=== PATIENT | male | born 1960 | race Caucasian/White ===

== ENCOUNTER 2024-11-06 20:53 | Emergency (ER) | payer OTHER, SELFPAY ==
[2024-11-06 20:58] VITALS: BP 98/63
[2024-11-06 21:10] LABS: Glucose - Point of Care 159 mg/dl (70-99)
[2024-11-06] MEDS: TYLENOL 1000 MG PO (21:17)
[2024-11-06 21:36] LABS: % Basophils 0.3 % (0-2); % Immature Granulocytes 0.5 % (0-0.5); % Lymphocytes 10.4 % (20.5-51.1); % Monocytes 12.9 % (1.7-9.3); % Neutrophils 74.9 % (42.2-75.2); Absolute Eosinophils 0.1 10^3/uL (0-0.7); Absolute Lymphocytes 0.6 10^3/uL (1.2-3.4); Absolute Monocytes 0.8 10^3/uL (0.1-0.6); Absolute Neutrophils 4.5 10^3/uL (1.4-6.5); Hematocrit 34.9 % (39.0-52.0); Hemoglobin 12.5 g/dL (13.0-18.0); Mean Corp Hgb Conc. 35.8 g/dL (33.0-37.0); Mean Corpuscular Hgb 29.1 pg (27.0-31.0); Mean Corpuscular Volume 81.4 fL (80.0-94.0); Mean Platelet Volume 9.3 fL (7.4-10.4); Nucleated Red Blood Cells % 0 % (-); Platelet Count 143 10^3/uL (130-400); Red Blood Cell Count 4.29 10^6/uL (4.70-6.10); Red Cell Dist. Width 13.2 % (11.5-14.5)
[2024-11-06 21:44] LABS: Lactic Acid 1.2 mmol/L (0.7-2.0)
[2024-11-06 21:46] VITALS: BMI 27.5
[2024-11-06 21:50] LABS: COVID-19 Antigen Positive (Negative)
[2024-11-06 21:54] LABS: ALT (SGPT) 135 U/L (0-50); AST (SGOT) 69 U/L (17-59); Albumin 4.7 g/dl (3.5-5.0); Alkaline Phosphatase 158 U/L (38-126); Blood Urea Nitrogen 15 mg/dl (9-20); Calcium 9.1 mg/dl (8.4-10.2); Carbon Dioxide 21 mmol/L (22-30); Chloride 103 mmol/L (98-107); Estimated Creatinine Clearance 94 ml/min; Glucose 165 mg/dl (70-99); Potassium 3.8 mmol/L (3.5-5.1); Sodium 135 mmol/L (135-145); Total Bilirubin 1.4 mg/dl (0.2-1.3); Total Protein 6.7 g/dl (6.3-8.2); eGFR > 60.00
--- NOTE | 2024-11-06 21:57 | ED.GENMED ---
History of Present Illness
General
Chief Complaint: Dizziness
Source: patient
Exam Limitations: none
Time Seen by Provider: 11/06/24 21:39
Nursing documentation reviewed up to this point in time: agreed with
History of Present Illness
History of Present Illness:
Patient to ED wt complaint of fever, fatigue, body aches, vomiting. Symptoms started this afternoon. Brought to ED by spouse for eval.
Past History
Past History
ED Past Medical History: NIDDM and Psychiatric
Social History
Personal:
Living: with family
Review of Systems
Review of Systems
Allergies reviewed?: Yes
All Other Systems: ROS reviewed and negative except as documented in HPI and ROS
Constitutional: Reports fever, fatigue and other (generalized body aches.)
EENT: Reports no symptoms
Respiratory: Reports no symptoms
Cardiac: Reports no symptoms
ABD/GI: Reports nausea and vomiting
: Reports no symptoms
Musculoskeletal: Reports no symptoms
Skin: Reports no symptoms
Neurological: Reports weakness
Psychiatric: Reports no symptoms
Phy Exam
General Physical Exam
General Presentation: mild distress
General age: appears stated age
General Skin: warm and dry
General Habitus: normal
General Mental: alert
General Hydration: appears well hydrated
Cardiovascular Exam
Cardiovascular Exam: regular rate/rhythm and no edema
Pulmonary Exam
Pulmonary Exam: lungs clear, no respiratory distress and chest non tender
Musculoskeletal Exam
Musculoskeletal Exam: full ROM and neuro vasc intact
Skin Exam
Skin Exam: normal color, warm/dry and no rash
Psychiatric Exam
Psychiatric Exam: normal mood/affect
Sepsis
Sepsis Screening
Sepsis Assessment: Sepsis Ruled Out
Sepsis Screen
Sepsis Screen: Sepsis Ruled Out
Date: 11/08/24
Time: 18:48
Course
Orders/Labs/Results
Orders:
Orders
03/31/25 21:03
EKG [Electrocardiogram (*1)] Urgent
Reason for Study: Fatigue / Weakness
EKG- Treatment ONCE
11/06/24 21:12
Acetaminophen [Tylenol] 1,000 mg PO NOW STA
11/06/24 21:17
Lactic Acid Urgent
11/06/24 21:18
COVID-19 Antigen Urgent
Source: Nasal Swab
Complete Blood Count/With Diff Urgent
Comprehensive Metabolic Panel Urgent
Blood Culture Urgent
LIA Source: Blood/Venous
Specimen Description:
Influenza A+B Rapid Molecular Urgent
LIA Source: Nasal Swab
Specimen Description:
11/06/24 21:56
0.9% Sodium Chloride 1000 ml [Nss] 1,000 ml IV BOLUS
Ketorolac [Toradol] 15 mg IV NOW STA
11/06/24 21:59
Ondansetron Injectable [Zofran] 4 mg IV NOW STA
Abnormal Lab Results
11/06/24 11/06/24
21:09 21:18
RBC 4.29 L 10^6/uL
(4.70-6.10)
Hgb 12.5 L g/dL
(13.0-18.0)
Hct 34.9 L %
(39.0-52.0)
Absolute Lymphs (auto) 0.6 L 10^3/uL
(1.2-3.4)
Absolute Monos (auto) 0.8 H 10^3/uL
(0.1-0.6)
Lymphocytes % 10.4 L %
(20.5-51.1)
Monocytes % 12.9 H %
(1.7-9.3)
Carbon Dioxide 21 L mmol/L
(22-30)
Glucose 165 H mg/dl
(70-99)
Total Bilirubin 1.4 H mg/dl
(0.2-1.3)
AST 69 H U/L
(17-59)
ALT 135 H U/L
(0-50)
Alkaline Phosphatase 158 H U/L
(38-126)
SARS-CoV-2 Antigen Positive A
(Negative)
POC Glucose 159 H mg/dl
(70-99)
11/06/24 21:18
11/06/24 21:18
Vital Signs
Initial and Last Documented VS:
Initial Vital Signs
Temp Pulse Resp BP
101.1 F H 82 18 98/63
11/06/24 20:58 11/06/24 20:58 11/06/24 20:58 11/06/24 20:58
Last Documented Vital Signs
Temp Pulse Resp BP Pulse Ox
100.3 F 62 20 131/69 95
11/06/24 22:37 11/06/24 23:50 11/06/24 21:45 11/06/24 23:50 11/06/24 23:50
*Critical Care Note
Total Time (30-74mins, 75-104mins- exclusive of procedures): Not Applicable
Update Note
Update Note:
Patient to ED with complaint of fever and weakness. Labs reviewed. He is COVID pos. Discussed findings with patient. He remains awake and alert, non toxic appearing. LCTA. Will discharge home, follow up with PCP. Given instructions on s/s to
return to ED and he is agreeable to plan.
ED Attending Note
-
Portions of this chart may have been created with voice recognition software.� Occasional wrong word or��sound alike� substitutions may have occurred due to the inherent limitations of voice recognition software.
Discharge Plan
Departure
Patient Disposition: Home (Routine Discharge)
Date of Disposition: 11/06/24
Time of Disposition: 22:44
Patient with high blood pressure during this ER visit?: No
Condition: Good
Covid-19: Not Applicable
Discharge Problem:
COVID-19
Instructions: Fever, Adult ED, COVID-19 - ED discharge instructions
Referrals:
Soniya Blackwell, DO [Family Provider] - Next open appointment
Stand Alone Forms: Return to Work
Interventions
Interventions:
*Risk Screen - Suicide Last Done: 11/06/24 20:58
*General Assessment Last Done: 11/06/24 20:58
*Neglect/Abuse Screening Last Done: 11/06/24 20:58
*ED- Fall Risk Assessment Last Done: 11/07/24 00:12
*ED COVID-19 Vaccine History Last Done: 11/06/24 20:58
*Nursing Disposition Last Done: 11/07/24 00:12
ED- Pulmonary Assessment Last Done: 11/06/24 21:17
ED- Neurological Assessment Last Done: 11/06/24 21:17
ED- Cardiac Assessment Last Done: 11/06/24 21:17
KT-Haqrie-Qmtpcmqieg Assessment Last Done: 11/06/24 21:17
ED Swallowing Screen Last Done: 11/06/24 21:17
Discharge Date and Time
Discharge Date/Time: 11/07/24 00:13
Print Language: GREEK
[2024-11-06 22:00] VITALS: BP 133/64
[2024-11-06] MEDS: NSS 1000 IV (22:12)
[2024-11-06] MEDS: ZOFRAN 4 MG IV (22:12)
[2024-11-06] MEDS: TORADOL 15 MG IV (22:12)
[2024-11-06 23:00] VITALS: BP 114/62
[2024-11-06 23:50] VITALS: BP 131/69
== END 2024-11-07 00:13 | disposition home or self-care (01) ==
LOC: EMR 20:53
PROVIDERS: Emergency Medicine; EMERGENCY PHYSICIAN Emergency Medicine; FAMILY PHYSICIAN Family Medicine
DX: R42 Dizziness and giddiness (principal); R50.9 Fever, unspecified; R53.83 Other fatigue; R11.2 Nausea with vomiting, unspecified; E11.9 Type 2 diabetes mellitus without complications
CPT/HCPCS: 99283; 96374; 96375; 96361; 80053; 82962; 83605; 85025; 87040; 87502; 87811; 93005

== ENCOUNTER → 2025-01-22 06:57 | Outpatient (REF) | payer OTHER, SELFPAY | LOC: RAD 06:57 | PROVIDERS: ATTENDING PHYSICIAN Student in an Organized Health Care Education/Training Program; FAMILY PHYSICIAN Family Medicine | DX: I73.9 Peripheral vascular disease, unspecified (principal) | CPT/HCPCS: 93923 ==

== ENCOUNTER → 2025-02-06 15:52 | Outpatient (REF) | payer OTHER, SELFPAY ==
[2025-02-06 17:03] LABS: Urine Character Clear (Clear)
[2025-02-06 17:16] LABS: Urine Red Blood Cell 0-2 /HPF (0-2)
[2025-02-06 17:17] LABS: Hematocrit 32.7 % (39.0-52.0); Hemoglobin 10.8 g/dL (13.0-18.0); Mean Corp Hgb Conc. 33.0 g/dL (33.0-37.0); Mean Corpuscular Volume 84.5 fL (80.0-94.0); Nucleated Red Blood Cells % 0 % (-); Platelet Count 165 10^3/uL (130-400); Red Cell Dist. Width 14.6 % (11.5-14.5)
[2025-02-06 17:41] LABS: ALT (SGPT) 41 U/L (0-50); AST (SGOT) 28 U/L (17-59); Albumin 4.6 g/dl (3.5-5.0); Alkaline Phosphatase 222 U/L (38-126); Alkaline Phosphatase, Total 222 U/L (38-126); Blood Urea Nitrogen 37 mg/dl (9-20); Calcium 9.3 mg/dl (8.4-10.2); Carbon Dioxide 19 mmol/L (22-30); Chloride 105 mmol/L (98-107); Glucose 182 mg/dl (70-99); Potassium 4.9 mmol/L (3.5-5.1); Sodium 137 mmol/L (135-145); Total Protein 7.1 g/dl (6.3-8.2); eGFR 31.13
[2025-02-06 18:12] LABS: PSA, Total - Screen 1.56 ng/ml (0.0-4.0)
[2025-02-06 22:13] LABS: Alk Phos After Heat 103; Alkaline Phosphatase Percent 46.40
== END ==
LOC: REG 15:52
PROVIDERS: ATTENDING PHYSICIAN Family Medicine; REFERRING PHYSICIAN Physician Assistant
DX: I10 Essential (primary) hypertension (principal); R74.8 Abnormal levels of other serum enzymes; R79.89 Other specified abnormal findings of blood chemistry
CPT/HCPCS: 36415; 80053; 81003; 81015; 84078; 85025; G0103

== ENCOUNTER → 2025-02-14 09:18 | Outpatient (REF) | payer OTHER, SELFPAY | LOC: HWRAD 09:18 | PROVIDERS: ATTENDING PHYSICIAN Family Medicine | DX: R50.9 Fever, unspecified (principal); I10 Essential (primary) hypertension; R74.8 Abnormal levels of other serum enzymes; R79.89 Other specified abnormal findings of blood chemistry | CPT/HCPCS: 76700 ==

== ENCOUNTER → 2025-02-25 07:22 | Outpatient (REF) | payer OTHER, SELFPAY | LOC: MRI 07:22 | PROVIDERS: ATTENDING PHYSICIAN Internal Medicine Gastroenterology; FAMILY PHYSICIAN Family Medicine | DX: R50.9 Fever, unspecified (principal); K80.20 Calculus of gallbladder without cholecystitis without obstruction; R10.13 Epigastric pain; R16.2 Hepatomegaly with splenomegaly, not elsewhere classified | CPT/HCPCS: 74183; A9575 ==

== ENCOUNTER 2025-02-26 23:16 | Inpatient (IN) | payer OTHER, SELFPAY ==
[2025-02-26 18:39] VITALS: BP 131/70
[2025-02-26 19:05] LABS: Hematocrit 34.7 % (39.0-52.0); Hemoglobin 11.2 g/dL (13.0-18.0); Mean Corp Hgb Conc. 32.3 g/dL (33.0-37.0); Mean Corpuscular Volume 86.1 fL (80.0-94.0); Nucleated Red Blood Cells % 0 % (-); Platelet Count 202 10^3/uL (130-400); Red Cell Dist. Width 14.0 % (11.5-14.5)
[2025-02-26 19:30] LABS: ALT (SGPT) 52 U/L (0-50); AST (SGOT) 24 U/L (17-59); Albumin 4.8 g/dl (3.5-5.0); Alkaline Phosphatase 382 U/L (38-126); Blood Urea Nitrogen 59 mg/dl (9-20); Calcium 9.9 mg/dl (8.4-10.2); Carbon Dioxide 24 mmol/L (22-30); Chloride 100 mmol/L (98-107); Glucose 382 mg/dl (70-99); Lipase 442 U/L (23-300); Potassium 5.2 mmol/L (3.5-5.1); Sodium 134 mmol/L (135-145); Total Protein 7.8 g/dl (6.3-8.2); eGFR 36.81
[2025-02-26 21:18] VITALS: BMI 25.9
[2025-02-26 21:28] VITALS: BP 145/89
--- NOTE | 2025-02-26 21:38 | ED.GENMED ---
History of Present Illness
General
Chief Complaint: Abdominal Pain
Source: patient and spouse
Exam Limitations: none
Time Seen by Provider: 02/26/25 21:02
Nursing documentation reviewed up to this point in time: agreed with
History of Present Illness
History of Present Illness:
Patient presents to ED for an evaluation after outpatient MRI abdomen revealed obstructing gallstones. Denies fever or chills. Denies nausea or vomiting. Denies trauma. Denies diarrhea. Denies recent change in medications or diet. Denies
previous history of similar symptoms. In addition, recent blood work had revealed worsening kidney function, for which he was evaluated by nephrology () as an outpatient.
Past History
Past History
ED Past Medical History: NIDDM and Psychiatric
Social History
Personal:
Living: with family
Review of Systems
Review of Systems
Allergies reviewed?: Yes
All Other Systems: ROS reviewed and negative except as documented in HPI and ROS
Constitutional: Reports no symptoms; Denies fever
Cardiac: Reports no symptoms
ABD/GI: Reports no symptoms; Denies nausea, vomiting or diarrhea
Musculoskeletal: Reports no symptoms
Skin: Reports no symptoms
Neurological: Reports no symptoms
Phy Exam
Physical Exam
Physical Exam:
Physical Exam
General: no apparent distress, not acutely ill. afebrile
Head: nc/at. eomi
Neck: supple. no meningeal signs.
Heart: s1/s2 regular rate and rhythm
Lungs: no acute respiratory distress. clear bilaterally
Abdomen: normal bowel sounds. not tender. no distention
Neuro: alert and oriented x 3. no focal neurological deficits
Skin: no rash
Psychiatric: well kept. interactive and cooperative
Extremities: no edema. no calf tenderness.
Course
Orders/Labs/Results
Orders:
Orders
02/26/25 18:45
EKG [Electrocardiogram (*1)] Urgent
Reason for Study: Bradycardia / Tachycardia
EKG- Treatment ONCE
02/26/25 18:58
Complete Blood Count/With Diff Urgent
Comprehensive Metabolic Panel Urgent
Lipase Urgent
02/26/25 21:40
Piperacillin/Tazo 3.375 Gram [Zosyn] 3.375 gram in 50 ml IV NOW
02/26/25 23:07
Admit/Transfer Patient As Directed
Co-Sign Provider:
Level of Care: Inpatient admission
Assign to:: Telemetry
Physician / Group: Murray Quevedo
Diagnosis: obstructing choledocholithiasis
Reason for Telemetry: Arrhythmia
Date to Stop Telemetry: 03/01/25
Time to Stop Telemetry: 11:00
Reason for Hospitalization: obstructing choledocholithiasis
Expected length of stay greater than two midnights?: Yes
ELOS- Estimated Length of Stay in days: 3
I certify the patient meets the requirements for IP care: Yes
02/26/25 23:08
Code Status As Directed
Resuscitation Status: Full Code
PRN Pain Medication Management As Directed
May give lesser potent ordered pain med per pt: Yes
preference::
Protocol:: Medication orders for pain may be administered in a
manner that supports deferring to patient preference
when the pt is:
- Requesting an ordered lesser potent pain medication.
Least to most potent pain medications are defined
as: acetaminophen < NSAID < tramadol < opioids
(morphine, oxycodone, hydromorphone).
- Requesting a lesser dose of the same medication IF
ORDERED.
- Requesting a less intrusive route of administration
if both routes are prescribed by the provider (PO <
IV).
02/26/25 23:37
Acetaminophen [Tylenol] 650 mg PO Q4HPRN PRN
02/26/25 23:37
Consult Notification Routine
Specialty to Notify: Surgical
GASTROINTESTINAL CONSULT Routine
Consulting Provider: Jenny Sagastume
Was physician already notified: Yes
Reason for consult: obstructing choledocholithiasis
SURGICAL CONSULT Routine
Consulting Provider: Selvin Tiwari
Was physician already notified: No
Reason for consult: obstructing choledocholithiasis
Activity As Directed
Activity Level: As Tolerated
Pneumatic Compression Sleeves As Directed
Type: Knee high
Vital Signs As Directed
Frequency: Per unit guidelines
Weight As Directed
Frequency: Weekly
Comment: on admission
DX Deep Vein Thrombosis Video Routine
02/26/25 23:45
Lactated Ringers [Lr] 1,000 ml IV 80 mls/hr
02/27/25 04:00
Piperacillin/Tazo 3.375 Gram [Zosyn] 3.375 gram in 50 ml IV Q6H
02/27/25 Breakfast
NPO
Allow oral meds: Yes
Allow clear liquids: No
Basic Metabolic Panel IN AM
Complete Blood Count/No Diff IN AM
02/27/25 08:00
Escitalopram Oxalate [Lexapro] 10 mg PO DAILY
Lamotrigine [Lamictal] 150 mg PO DAILY
Naltrexone HCl [Revia] 50 mg PO DAILY
Pregabalin [Lyrica] 75 mg PO TID
02/27/25 18:00
Atorvastatin [Lipitor] 10 mg PO QPM
03/01/25 11:00
DC Protocol for Telemetry ONCE
Abnormal Lab Results
02/26/25
18:58
RBC 4.03 L 10^6/uL
(4.70-6.10)
Hgb 11.2 L g/dL
(13.0-18.0)
Hct 34.7 L %
(39.0-52.0)
MCHC 32.3 L g/dL
(33.0-37.0)
Abs Immat Gran (auto) 0.1 H 10^3/uL
(0-0.05)
Immature Gran % 1.4 H %
(0-0.5)
Sodium 134 L mmol/L
(135-145)
Potassium 5.2 H mmol/L
(3.5-5.1)
BUN 59 H mg/dl
(9-20)
Creatinine 2.0 H mg/dL
(0.7-1.3)
Glucose 382 H mg/dl
(70-99)
ALT 52 H U/L
(0-50)
Alkaline Phosphatase 382 H U/L
(38-126)
Lipase 442 H U/L
(23-300)
02/26/25 18:58
02/26/25 18:58
Vital Signs
Initial and Last Documented VS:
Initial Vital Signs
Temp Pulse Resp BP Pulse Ox
97.8 F 48 18 131/70 99
02/26/25 18:39 02/26/25 18:39 02/26/25 18:39 02/26/25 18:39 02/26/25 18:39
Last Documented Vital Signs
Temp Pulse Resp BP Pulse Ox
98.4 F 48 18 135/72 99
02/26/25 21:28 02/26/25 18:39 02/26/25 21:28 02/26/25 22:00 02/26/25 22:23
MDM/Problems Addressed
MDM/Problems Addressed:
MRI abdomen report reviewed and discussed with on-call GI physician, Dr. Sagastume. Recommends admission to hospitalist service on IV antibiotics, with plan for ERCP and cholecystectomy.
*Pulse Oximetry
SaO2: 98
Oxygen Mode of Delivery: Room air
Patient hypoxic: no
*EKG
Interpreted by ED Provider?: Yes
EKG Intrepretation Date: 02/26/25
Heart Rate: 45
Rate: bradycardiac
Rhythm: sinus
[place]: normal axis
*Critical Care Note
Total Time (30-74mins, 75-104mins- exclusive of procedures): Not Applicable
ED Attending Note
-
Portions of this chart may have been created with voice recognition software.� Occasional wrong word or��sound alike� substitutions may have occurred due to the inherent limitations of voice recognition software.
Discharge Plan
Departure
Patient Disposition: Admit
Date of Disposition: 02/26/25
Time of Disposition: 21:40
Admit to: Med/Surg
Presentation/result/management discussed w/ accepting MD/DO: Hospitalist
Discharge Problem:
Choledocholithiasis
Interventions
Interventions:
*Risk Screen - Suicide Last Done: 02/26/25 18:39
*General Assessment Last Done: 02/26/25 18:39
*Neglect/Abuse Screening Last Done: 02/26/25 21:33
*ED COVID-19 Vaccine History Last Done: 02/26/25 18:39
OS-Zplvjy-Vylunmucop Assessment Last Done: 02/26/25 21:33
[2025-02-26] MEDS: ZOSYN 50 IV (21:58)
[2025-02-26 22:00] VITALS: BP 135/72
--- NOTE | 2025-02-26 22:25 | HPS.HSE ---
Family Physician
-
Family Physician: Soniya Blackwell
Chief Complaint
-
abnormal out patient abdominal MRI
History of Present Illness
Patient is 64-year-old male with past medical history significant hypertension, hyperlipidemia, DM II, bipolar and depression who presented to [facility] ED for evaluation after outpatient MRI abdomen revealed obstructing gallstones. Patient reports
having intermittent fevers start approximately 8 weeks ago with no associated symptoms which triggered out patient workup, now with abnormal abdmonial MRI. Patient denies any symptoms, recent illness, fever, chills, cough, shortnss of breath,
nausea, vomiting, constipation, diarrhea or urinary changes.
Medical History
Past Medical History
Past Medical History: Reports Other
Additional Past Medical History:
hypertension
hyperlipidemia
DM II
bipolar
depression
Past Surgical History: Reports Other
Additional Past Surgical History:
Bone marrow biopsy 08/2015
Gastric biopsy 08/2015
Screening colonoscopy: Recommend repeat 5 years (2020) 09/19/2015
Social History
Tobacco: Other (chews tobacco )
Alcohol: Occasional
Drug: None
Personal:
Living: With Family
Employment: Employed
Family History
Family History: Other (Father: CAD; Mother: Colon cancer )
Allergies / Home Medications
Allergies reflects when Allergies were last updated in [facility].
Home Medications with original date entered in [facility]
Allergy/Medication List:
Allergies
Allergy/AdvReac Type Severity Reaction Status Date / Time
No Known Allergies Allergy Verified 02/26/25 18:46
Home Medications
escitalopram oxalate 10 mg tablet 10 mg PO DAILY 02/23/25
lamotrigine 150 mg tablet 150 mg PO DAILY 02/23/25
naltrexone 50 mg tablet 50 mg PO DAILY 02/23/25
pregabalin 75 mg capsule 75 mg PO TID 02/23/25
simvastatin 20 mg tablet 20 mg PO QPM 02/23/25
insulin aspart U-100 100 unit/mL (3 mL) subcutaneous pen (Novolog FlexPen U-100 Insulin aspart) 3 unit SC TID 02/26/25
insulin glargine 100 unit/mL subcutaneous solution (Lantus U-100 Insulin) 8 unit SC DAILY 02/26/25
Review of Systems
-
History Source: Patient
Constitutional: Reports Fever (intermittent for 8 weeks)
EENT: Reports No Symptoms
Respiratory: Reports No Symptoms
Cardiac: Reports No Symptoms
Abdomen/GI: Reports No Symptoms
: Reports No Symptoms
Musculoskeletal: Reports No Symptoms
Skin: Reports No Symptoms
Neurological: Reports No Symptoms
Endocrine: Reports No Symptoms
Hematologic/Lymphatic: Reports No Symptoms
Psych: Reports No Symptoms
Physical Exam
Vital Signs
Vital Signs
Temp Pulse Resp BP Pulse Ox
98.4 F 48 18 131/70 98
02/26/25 21:28 02/26/25 18:39 02/26/25 21:28 02/26/25 18:39 02/26/25 21:40
Physical Exam
General: Well Developed, Well Nourished, No Apparent Distress, Comfortable and Conversant
HEENT: NormoCephalic, Moist mucous membranes, Atraumatic and Nogal Conjunctivae
Respiratory: Clear and Non Labored Respirations
Cardiac: S1/S2, Regular Rhythm and Bradycardia; No Murmur
GI: Soft, Non Tender, Non Distended and Normal Bowel Sounds
Rectal: Deferred by Provider
Musculoskeletal: No Clubbing, No Cyanosis and No Edema
Skin: Warm
Neuro: Awake, AO x 3 and Nonfocal/grossly intact
Psych: Calm and Intact Judgment/Insight
Laboratory Results
-
02/26/25 18:58
02/26/25 18:58
Laboratory Results
Total Bilirubin 1.2 mg/dl (0.2-1.3) 02/26/25 18:58
AST 24 U/L (17-59) 02/26/25 18:58
ALT 52 U/L (0-50) H 02/26/25 18:58
Alkaline Phosphatase 382 U/L (38-126) H 02/26/25 18:58
Lipase 442 U/L (23-300) H 02/26/25 18:58
Data Reviewed
-
MRI: Report Reviewed by me (Abd: 1. OBSTRUCTING CHOLEDOCHOLITHIASIS in the distal common bile duct. 2. Moderate intrahepatic and proximal extrahepatic biliary dilatation. 3. Moderate hepatosplenomegaly. 4. Mild lucinda hepatis and portacaval
lymphadenopathy. 5. Small pancreatic cysts (less than 5 mm in size). 6. Smal)
Medical Tests (Nuc Med, Echo, EKG etc): Report Reviewed by me (EKG: SINUS BRADYCARDIA WITH 1ST DEGREE A-V BLOCK)
Lab Data: Labs Reviewed by me (BUN 59, Creat 2.0, eGFR 36.81, glucose 382, ALT 52, Alk Phos 382, Lipase 442)
Impression/Plan
-
IMPRESSION/PLAN:
#obstructing choledocholithiasis
ALT 52, Alk Phos 382, Lipase 442
Abd MRI: 1. OBSTRUCTING CHOLEDOCHOLITHIASIS in the distal common bile duct.
2. Moderate intrahepatic and proximal extrahepatic biliary dilatation.
3. Moderate hepatosplenomegaly.
4. Mild lucinda hepatis and portacaval lymphadenopathy.
5. Small pancreatic cysts (less than 5 mm in size).
6. Small splenic cysts.
EKG: SINUS BRADYCARDIA WITH 1ST DEGREE A-V BLOCK
- Admit to telemetry
- Consult GI
- Consult Surgery
- LR 80cc/hr
- supportive care
#acute kidney injury?
BUN 59, Creat 2.0, eGFR 36.81
follow with Nephrology out patient ()
- monitor BMP
#hypertension
#hyperlipidemia
- continue simvastatin
#DM II
glucose 382
- AccuCheck AC & HS
- SSI
- hold long acting insulin
#neuropathy
- continue pregabalin
#bipolar
#depression
- continue escitalopram, lamotrigine and naltrexone
Code status: full code
DVT prophylaxis: SCDs
--- NOTE | 2025-02-26 22:32 | W.PN.UPDATE ---
Update Note
Progress Note Update
Patient seen in conjunction with DALLIN. I agree with the findings mentioned physical. I concur with the assessment and plan unless stated otherwise.
Briefly, this is a 63-year-old with history of diabetes, hyperlipidemia, depression who had abdominal pain for which he has been followed by GI. He had an outpatient MRI showing obstructive choledocholithiasis for which patient is sent into the
emergency department to be admitted for upcoming ERCP. he reports history of intermittent fevers for several weeks and a workup initially showing transaminitis with follow-up imaging with an ultrasound concerning for choledocholithiasis and then he
had a MRI showing obstructive choledocholithiasis. Recently discontinued on antidiabetic medications.
Patient found to be bradycardic on ECG in the emergency department. He had an episode of COVID-19 in October. Since then patient has had no water or respiratory symptoms. Denies palpitations lightheadedness or dizziness. Denies any chest pain.
Patient denies any new medications.
Patient found to have DANIELLA in early February for which she has been followed by outpatient nephrology for workup.
In the ED he was febrile, blood pressure was 130/70 with a pulse of 48 and satting 98% on room air.
CBC unremarkable
Electrolytes notable for potassium of 5.2 but otherwise unremarkable. BUN/creatinine were 59 and 2.0 with a glucose of 382. Alk phos was elevated and lipase was elevated as well. Creatinine is stable compared to his evaluation 3 weeks ago.
Assessment and plan
Obstructive choledocholithiasis
- Admit to telemetry
- N.p.o.
- Gentle hydration
- Pain control and antiemetics
- starting Zosyn per GI
- GI consulted for ERCP in a.m.
- surgical consult
DM II
- aspart 5 now
- sliding scale insulin
DANIELLA -persistent renal dysfunction since early February. Has seen outpatient nephrology
- Renal dose of medication
- Avoid nephrotoxins
- Will avoid NSAIDs for now
- IV fluids with normal saline at this time
Bradycardia -sinus rhythm cardia no blocking agents, asymptomatic at this time but reports intermittent episodes of dizziness for 2 months. Denies any prior history of CAD. States that blood pressure medications have been weaned off recently.
- telemetry to observe for severe bradycardia
- 1st deg avb, no ischemia, check tsh, may need further ischemic testing as outpatient
- avoid kiley agents
- consult cardiology in am if persistently berry on telemetry
DVT prophylaxis�heparin subcu
CODE STATUS�full code
[2025-02-26] MEDS: NOVOLOG vial 0.05 UNITS SC (23:37)
[2025-02-27] VITALS (16 sets, daily range): BP systolic 121–150; BP diastolic 55–77; BMI 24.4
[2025-02-27] MEDS: LR 1000 IV ×3 (00:10→20:30)
--- NOTE | 2025-02-27 02:27 | DOWNTIME ---
There was a [employer] Client Program Specialist Downtime on 02/27/2025 from 0100 to 02/27/2025 at 0220. Downtime documentation of patient's care, including medication administrations, has been reconciled in the electronic record per guidelines. Refer to the
patient's paper chart under the miscellaneous tab to see printed paper medication records and downtime forms.
[2025-02-27] MEDS: ZOSYN 50 IV ×4 (04:36→21:08)
[2025-02-27 05:03] LABS: Hematocrit 26.0 % (39.0-52.0); Hemoglobin 8.6 g/dL (13.0-18.0); Mean Corp Hgb Conc. 33.1 g/dL (33.0-37.0); Mean Corpuscular Volume 85.8 fL (80.0-94.0); Platelet Count 156 10^3/uL (130-400); Red Cell Dist. Width 14.0 % (11.5-14.5)
[2025-02-27 05:29] LABS: Blood Urea Nitrogen 53 mg/dl (9-20); Calcium 8.9 mg/dl (8.4-10.2); Carbon Dioxide 19 mmol/L (22-30); Chloride 104 mmol/L (98-107); Estimated Creatinine Clearance 53 ml/min; Glucose 502 mg/dl (70-99); Potassium 4.6 mmol/L (3.5-5.1); Sodium 133 mmol/L (135-145); eGFR 44.74
--- NOTE | 2025-02-27 06:04 | W.PN.UPDATE ---
Update Note
Progress Note Update
Bs this am is 502, anion gap is 10. SSI/ moderate initiated. 10 unit of insulin ordered and will recheck bs in 2hrs.
[2025-02-27 06:20] LABS: Hematocrit 29.5 % (39.0-52.0); Hemoglobin 9.9 g/dL (13.0-18.0)
[2025-02-27] MEDS: NOVOLOG FLEXPEN 10 UNITS SC (06:31)
--- NOTE | 2025-02-27 07:00 | CON.GI ---
Addendum entered and electronically signed by DALLIN Kong 02/27/25 17:15:
additional time spent with patient in coordinating care for procedure with cardiology for clearance to proceed
Addendum entered and electronically signed by Jenny Sagastume DO 02/27/25 17:04:
Patient currently off the floor undergoing ERCP with Dr. Donahue. Will see him tomorrow
Addendum entered and electronically signed by DALLIN Kong 02/27/25 08:42:
reviewed with Dr. Severino via tiger text for medical optimization prior to ERCP with elevated FBS and bradicardia
Original Note:
Consultation
-
Date/Time Consultation Requested: 02/27/25 2330
Date/Time Consultation Performed: 02/27/25 0700
Requesting Provider: DALLIN Castellanos
Performing Provider: DALLIN Blackwood, Jenny Sagastume DO
Reason for Consultation: CBD stone
Medical History
Chief Complaint / HPI
History of Present Illness:
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
2015 with hematology evaluation repeat reading neg at [place] at that time presents with abnormal MRI imaging with concern for choledocholithiasis with intra and extra hepatic biliary dilatation. Also noted HSM, mild lucinda hepatis and portacaval
lymphadenopathy with small panc cyst. In review with patient noted with recent fever, DANIELLA, and elevated alk phos. He was also recently seen by nephrology for elevated BUN and creat. He has adjustment of medications and also considering heme
testing with HSM . Pt admits to fever and mild chronic nausea but denies dysphagia, GERD, nausea, vomiting, abdominal pain, diarrhea, constipation, change in urine or stool color or rectal bleeding. Review of labs 02/06 with BUN 37, creat 2.3, bili
1, AST 28, ALT 41, and alk phos 22. Pt also noted with bradycardia on admission and elevated FBS. Repeat labs on admission with hbg 11.2 with drop to 8.6, Na 134, BUN 59, creat 2, glucose up to 502, buli 1.2, AST 24, ALT 52, alk phos 382 and
lipase 442.
Past Medical History
Past Medical History: HTN, Hypercholesterolemia, NIDDM, Psychiatric (depression, bipolar ) and Other (neuropathy, polyp with hx amyoid s/p eze evaluation with repeat reading negative, covid october 2024 )
Past Surgical History: Other (bone marrow biopsy)
Social History
Tobacco: Non-Smoker
Alcohol: None
Drug: None
Personal:
Living: With Family
Employment: Employed
Family History
Family History: Other (uncle with panc [place])
Allergies / Home Medications
Allergy/AdvReac Type Severity Reaction Status Date / Time
No Known Allergies Allergy Verified 02/26/25 18:46
�Medication �Instructions �Recorded
escitalopram oxalate 10 mg tablet 10 mg PO DAILY 02/23/25
lamotrigine 150 mg tablet 150 mg PO DAILY 02/23/25
naltrexone 50 mg tablet 50 mg PO DAILY 02/23/25
pregabalin 75 mg capsule 75 mg PO TID 02/23/25
simvastatin 20 mg tablet 20 mg PO QPM 02/23/25
insulin aspart U-100 100 unit/mL 3 unit SC TID 02/26/25
(3 mL) subcutaneous pen (Novolog
FlexPen U-100 Insulin aspart)
insulin glargine 100 unit/mL 8 unit SC DAILY 02/26/25
subcutaneous solution (Lantus
U-100 Insulin)
Review of Systems
-
History Source: Patient
Constitutional: Reports Fever, Weight Gain ( 45 lbs ) and Fatigue
EENT: Reports No Symptoms
Respiratory: Reports No Symptoms
Cardiac: Reports No Symptoms
Abdomen/GI: Reports Nausea
: Reports No Symptoms
Musculoskeletal: Reports No Symptoms
Skin: Reports No Symptoms
Neurological: Reports No Symptoms
Endocrine: Reports No Symptoms
Hematologic/Lymphatic: Reports No Symptoms
Vital Signs
Temp Pulse Resp BP Pulse Ox
98.5 F 48 18 122/68 97
02/27/25 06:17 02/26/25 18:39 02/26/25 21:28 02/27/25 04:37 02/27/25 06:17
Physical Exam
Exam
General: Well Developed, Well Nourished and No Apparent Distress
HEENT: Normocephalic and Anicteric
Respiratory: Clear
Cardiac: Other (bradicardia )
GI: Soft, Non Tender and Non Distended
Musculoskeletal: No Clubbing and No Cyanosis
Skin: Warm and Dry
Neuro: Awake, Alert and AO x 3
Psych: Calm
Results
WBC 4.5 10^3/uL (4.8-10.8) L 02/27/25 04:34
Hgb 9.9 g/dL (13.0-18.0) L 02/27/25 06:04
Hct 29.5 % (39.0-52.0) L 02/27/25 06:04
MCV 85.8 fL (80.0-94.0) 02/27/25 04:34
Plt Count 156 10^3/uL (130-400) D 02/27/25 04:34
Absolute Neuts (auto) 4.4 10^3/uL (1.4-6.5) 02/26/25 18:58
Sodium 133 mmol/L (135-145) L 02/27/25 04:34
Potassium 4.6 mmol/L (3.5-5.1) 02/27/25 04:34
Chloride 104 mmol/L (98-107) 02/27/25 04:34
Carbon Dioxide 19 mmol/L (22-30) L 02/27/25 04:34
BUN 53 mg/dl (9-20) H 02/27/25 04:34
Creatinine 1.7 mg/dL (0.7-1.3) H 02/27/25 04:34
Calcium 8.9 mg/dl (8.4-10.2) 02/27/25 04:34
Total Bilirubin 1.2 mg/dl (0.2-1.3) 02/26/25 18:58
AST 24 U/L (17-59) 02/26/25 18:58
ALT 52 U/L (0-50) H 02/26/25 18:58
Alkaline Phosphatase 382 U/L (38-126) H 02/26/25 18:58
Lipase 442 U/L (23-300) H 02/26/25 18:58
Diagnostic Image Results:
02/14/2025 Ultrasound of the abdomen prominent gallbladder containing stones and sludge with top normal gallbladder wall, minimal pericholecystic fluid, enlarged common bile duct and intrahepatic ductal dilatation and dilation of PD, small simple
right renal cyst, mild hepatosplenomegaly
02/25/25 MR Abdomen W/o & W Contrast
1. OBSTRUCTING CHOLEDOCHOLITHIASIS in the distal common bile duct.
2. Moderate intrahepatic and proximal extrahepatic biliary dilatation.
3. Moderate hepatosplenomegaly.
4. Mild lucinda hepatis and portacaval lymphadenopathy.
5. Small pancreatic cysts (less than 5 mm in size).
6. Small splenic cysts.
Prior GI Procedures:
EGD: 09/2015- - Normal 2nd part of the duodenum.
- Erythematous duodenopathy. Biopsied.
- Erythematous mucosa in the antrum. Biopsied.
- Hiatus hernia.
- Z-line irregular, 40 cm from the incisors. Biopsied.
- Erythema in the upper third of the esophagus. Biopsied.
bx with neg
colonoscopy 09/19/[address] Diaz normal ileum, 5 mm rectosigmoid polyp consistent with amyloid. repeat read bx at [place] neg, - due 5 years follow up not completed per patient
Assessment / Plan
-
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
2015 with hematology evaluation repeat reading neg at [place] at that time presents with abnormal MRI imaging with concern for choledocholithiasis with intra and extra hepatic biliary dilatation. Also noted HSM, mild lucinda hepatis and portacaval
lymphadenopathy with small panc cyst. In review with patient noted with recent fever, DANIELLA, and elevated alk phos. He was also recently seen by nephrology for elevated BUN and creat. He has adjustment of medications and also considering heme
testing with HSM . Pt admits to fever and mild chronic nausea but denies dysphagia, GERD, nausea, vomiting, abdominal pain, diarrhea, constipation, change in urine or stool color or rectal bleeding. Review of labs 02/06 with BUN 37, creat 2.3, bili
1, AST 28, ALT 41, and alk phos 22. Pt also noted with bradycardia on admission and elevated FBS. Repeat labs on admission with hbg 11.2 with drop to 8.6, Na 134, BUN 59, creat 2, glucose up to 502, buli 1.2, AST 24, ALT 52, alk phos 382 and
lipase 442.
-choledocholithiasis with increased alk phos
-recent wt loss with mounjaro use
-MRI with concurrent HSM, mild lucinda hepatis and portacaval lymphadenopathy with small panc cyst
-recent DANIELLA - s/p OP neurology eval med vs other related
-bradycardia
-hyperglycemia after admission
-prior + amyloid on colon bx in 2015 with hematology evaluation repeat reading neg at [place] at that time
other med problems:
HTN
hypercholesterolemia
NIDDM with retinopathy and neuropathy
depression
bipolar
covid October 2024
PLAN:
Recent MRI with concern for choledocholithiasis
plan for eventual ERCP when medically optimized with bradycardia and hyperglycemia this am
cont NPO if able to do later today
cont abx
await cards eval
MRI with other
for surgical eval - was due for dennise tomorrow and possible liver bx with HSM
medical management with also DANIELLA, HSM and adenopathy ? underlying heme issues vs related to medication
-
-
Thank you for consultation and allowing me to participate in the patient's care. Please call the person investigator GI physician during the after hours with any questions or concerns.
[2025-02-27] MEDS: LEXAPRO 10 MG PO (07:31)
[2025-02-27] MEDS: LYRICA 75 MG PO ×3 (07:31→21:08)
[2025-02-27] MEDS: LAMICTAL 150 MG PO (07:43)
[2025-02-27 07:50] LABS: Glucose - Point of Care 394 mg/dl (70-99)
[2025-02-27] MEDS: REVIA 50 MG PO (07:53)
[2025-02-27] MEDS: NOVOLOG FLEXPEN-MODERATE RESISTANCE 9 UNITS SC (07:54)
--- NOTE | 2025-02-27 08:44 | W.PN.HOSP.TC ---
Today's Communication/Plan
-
See plan
Assessment / Plan
Assessment / Plan
Impression:
64 years old male with type 2 diabetes with intermittent fever as outpatient prompted to workup revealed abnormal LFTs and later with imaging choledocholithiasis
Choledocholithiasis
Acute kidney injury
Hyperkalemia
Normal anion gap metabolic acidosis
Hyponatremia
Sinus bradycardia
Conditions prior to admission
Type 2 diabetes
Dyslipidemia
Bipolar disorder.
Plan
Choledocholithiasis
Asymptomatic on presentation, although with intermittent fevers outpatient.
Noted with normal bilirubin and very mild elevation of alkaline phosphatase and ALT
MRI
1. OBSTRUCTING CHOLEDOCHOLITHIASIS in the distal common bile duct.
2. Moderate intrahepatic and proximal extrahepatic biliary dilatation.
3. Moderate hepatosplenomegaly.
4. Mild lucinda hepatis and portacaval lymphadenopathy.
5. Small pancreatic cysts (less than 5 mm in size).
6. Small splenic cysts.
GI/surgery evaluation with consideration of ERCP�cholecystectomy
Given fever as outpatient check blood cultures
Initiated on Zosyn in the ED prior blood cultures drawn
Follow LFT
Hold simvastatin acutely
Acute kidney injury
Noted mild hyperkalemia and normal anion gap metabolic acidosis.
Bladder scan for retention
Mild hyponatremia secondary to hyperglycemia
UA
Urine sodium
Creatinine trending down with IV fluid bolus
Sinus bradycardia
No prior history of cardiac disease/arrhythmia
Telemetry monitoring
TSH
Correct electrolytes and monitor for worsening of hyperkalemia
Cardiology evaluation
Type 2 diabetes baseline
Patient reports hemoglobin A1c 6.9 recently
Given acute GI issues and abnormal LFTs was taken off Mounjaro and metformin with initiation of insulin.
Update hemoglobin A1c.
N.p.o. pending endoscopy
Given persistent hyperglycemia, resume Lantus 8 units at bedtime
Basal bolus protocol with serial Accu-Cheks
Neuropathy
Continue pregabalin and naltrexone with caution monitor renal function closely
Bipolar disorder
Continue lamotrigine, escitalopram
Anticipated Discharge: 24 - 48 hours
Subjective/Interval History
-
Date of Service: February 27, 2025
Objective Data
-
Labs:
Laboratory Results
02/27/25 02/27/25 02/27/25
04:34 06:04 08:28
WBC 4.5 L
Hgb 8.6 L D 9.9 L
Hct 26.0 L 29.5 L
Plt Count 156 D
PT Pending
INR Pending
Sodium 133 L
Potassium 4.6
Chloride 104
Carbon Dioxide 19 L
BUN 53 H
Creatinine 1.7 H
Glucose 502 H*
Calcium 8.9
Vital Signs:
Vital Signs
Temp Pulse Resp BP Pulse Ox
97.5 F 45 14 121/55 99
02/27/25 07:00 02/27/25 07:00 02/27/25 07:00 02/27/25 07:00 02/27/25 07:00
Physical Exam
-
General: Well Developed and No Apparent Distress
HEENT: Normocephalic, Atraumatic and Moist Mucous Membranes
Respiratory: Clear to Auscultation
Cardiac: Regular Rhythm and S1/S2; Negative Murmur, Rub or Gallop
GI: Soft, Nontender, Nondistended and Normal Bowel Sounds; Negative Organomegaly
Rectal: Deferred by Provider
Musculoskeletal: No Clubbing, No Cyanosis and No Edema
Skin: Negative Rash
Neuro: Nonfocal/Grossly Intact
[2025-02-27 10:05] LABS: INR 0.93; PT 12.7 Sec (11.4-14.6)
--- NOTE | 2025-02-27 10:41 | CM ---
CM met with pt bedside
Pt resides with his spouse in a 2 SH with 1 [address], full flight to 2nd floor
Pt is indep with his ADLs, denies use of DMEs
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
Denies financial insecurities
PCP- Soniya Blackwell
Rx- Elle Wilkes
Discharge Disposition- anticipate home no needs
[2025-02-27 10:44] LABS: Glycohemoglobin (HgbA1c) 8.7 % (4.0-5.6)
--- NOTE | 2025-02-27 11:13 | CON.GS ---
Addendum entered and electronically signed by Selvin Tiwari MD 02/27/25 13:10:
Patient seen and examined.
Patient is a 64 yo M with PMH of depression/anxiety, bipolar disorder, HLD, and NIDDM presents following outpatient for choledocholithiasis in the setting of intermittent epigastric abdominal pain and fevers over the past several months. No changes
in his symptoms since his prior evaluation as an outpatient by myself on 02/22/2025. Currently he denies any significant abdominal pain. No nausea or vomiting. No fevers or chills. He reports paler stools, jaundice, and pruritus, but denies any
dark or tea colored urine.
Gen: NAD
Abd: soft, NT/ND, non-peritoneal
Labs and MRI reviewed.
Patient is a 64 yo M p/w choledocholithiasis
The natural history and pathophysiology of biliary and stone disease has been previously discussed. Most recent MRI was reviewed. Role of cholecystectomy in preventing future episodes of cholecystitis, choledocholithiasis, gallstone pancreatitis
were reviewed. GI consult noted. Timing of ERCP pending medical clearance. Timing of cholecystectomy pending GI workup and management (tentative lap dennise on Sunday 12/31?). All questions answered.
-- GI consult noted
-- Diet per GI
-- Abx: Zosyn
-- Timing of lap dennise TBD, will continue to follow
Original Note:
Medical History
-
Chief Complaint: choledocholilithiasis
History of Present Illness:
64yoM PMH NIDDM presenting from outpatient work up for months of intermittent fevers and epigastric pain revealing choledocholithiasis on recent MRI. Pt denies fever, chills, abdominal pain since being here.
Pt had prior concern of amyloid on colonoscopy in 2015. He then had further work up with bone marrow and liver biopsy at [place] that were negative for amyloid at that time.
Pt saw Dr. Tiwari 02/22 with initially planned outpatient cholecystectomy tomorrow.
Past Medical History
Past Medical History: HTN, Hypercholesterolemia and NIDDM
Allergies / Home Medications
Allergy/AdvReac Type Severity Reaction Status Date / Time
No Known Allergies Allergy Verified 02/26/25 18:46
�Medication �Instructions �Recorded �Confirmed �Type
escitalopram oxalate 10 mg tablet 10 mg PO DAILY 02/23/25 02/27/25 History
lamotrigine 150 mg tablet 150 mg PO DAILY 02/23/25 02/27/25 History
naltrexone 50 mg tablet 50 mg PO DAILY 02/23/25 02/27/25 History
pregabalin 75 mg capsule 75 mg PO TID 02/23/25 02/27/25 History
simvastatin 20 mg tablet 20 mg PO QPM 02/23/25 02/27/25 History
insulin aspart U-100 100 unit/mL 3 unit SC TID 02/26/25 02/27/25 History
(3 mL) subcutaneous pen (Novolog
FlexPen U-100 Insulin aspart)
insulin glargine 100 unit/mL 8 unit SC DAILY 02/26/25 02/27/25 History
subcutaneous solution (Lantus
U-100 Insulin)
Review of Systems
-
A 10 point review of systems was completed, and was negative except as per HPI.
Physical Exam
Vital Signs
Temp Pulse Resp BP Pulse Ox
97.5 F 45 14 121/55 99
02/27/25 07:00 02/27/25 07:00 02/27/25 07:00 02/27/25 07:00 02/27/25 07:00
02/26/25 02/27/25 02/28/25
06:59 06:59 06:59
Actual Weight 94.1 kg
Body Mass Index (BMI) 25.9
Lab Results
02/27/25 06:04
02/27/25 04:34
WBC 4.5 10^3/uL (4.8-10.8) L 02/27/25 04:34
Hgb 9.9 g/dL (13.0-18.0) L 02/27/25 06:04
Hct 29.5 % (39.0-52.0) L 02/27/25 06:04
Plt Count 156 10^3/uL (130-400) D 02/27/25 04:34
Abs Immat Gran (auto) 0.1 10^3/uL (0-0.05) H 02/26/25 18:58
Neutrophils % 70.5 % (42.2-75.2) 02/26/25 18:58
Physical Exam
General: Well Developed and No Apparent Distress
HEENT: Normocephalic and Scleral Icterus (faint)
Respiratory: Non Labored Respirations
Cardiac: Other (Bradycardia)
GI: Soft, Non Tender, Non Distended and Other (negative [place]'s sign)
Skin: Warm and Dry
Neuro: AO x 3 and Nonfocal/Grossly Intact
Psych: Calm
Assessment / Plan
-
64yoM with symptomatic cholelithiasis on outpatient work up findings of choledocholithiasis known to Dr. Tiwari.
New bradycardia. Elevated BG and Cr.
Plan
Medically optimize prior to procedures.
Diet and ERCP plans per GI recommendations.
Cholecystectomy after ERCP.
Continue IV Abx zosyn.
[2025-02-27 11:24] LABS: Urine Character Clear (Clear)
[2025-02-27 11:44] LABS: Urine Squamous Cell 0-2 /LPF (Few)
[2025-02-27 11:46] LABS: Urine White Cell 0-2 /HPF (0-5)
[2025-02-27 11:54] LABS: Glucose - Point of Care 270 mg/dl (70-99)
[2025-02-27] MEDS: NOVOLOG FLEXPEN-MODERATE RESISTANCE 5 UNITS SC ×2 (12:10→20:30)
--- NOTE | 2025-02-27 12:18 | CON.CAR ---
Addendum entered and electronically signed by Fred Cheema MD 02/27/25 15:14:
Attending addendum: Patient seen and examined. DEEPIKA note reviewed and I independently met with and examined the patient. Briefly, this is a 64 y/o gentleman with a PMH notable for long-standing diabetes, hypertension and hyperlipidemia. His Hgb
has generally been well controlled until the past several months when glucose levels have been 'all over the place'. He reported intermittent fevers over the past several weeks and an ultrasound of the abdomen was notable for cholelithiasis. He
was seen by GI service on 02/20/25 and MRI was recommended. The MRI was notable for obstructing choledocholithiasis and he was directed to [facility] for an expedited evaluation and workup. He was noted to be somewhat bradycardic and a cardiology consult
was requested before ERCP.
Mr. Thakur is reasonably active. 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 He denies any functional impairment and denies any chest pain. He has experienced near syncopal episodes after bending over and standing up.
SH: Etoh: Prior heavy, none recent,
Allergies: NKDA
FH: Father developed CADz in 50's.
PE:
Gen: Awake, conversant and pleasant. NAD
HEENT: NC/AT, sclera anicteric
Lungs: Clear to bases bilaterally. No wheezing. Good air movement
CV: Normal S1 / S2. No rub or murmur
Abd: Soft, bowel sounds present
Ext: No edema. palpable DP/PT pulses.
Neuro: no focal neurologic deficit
Skin: warm, dry, no rash
Labs: reviewed
ECG: Sinus berry with 1st degree AV block. Nonspecific ST-T changes
IMPRESSION/RECOMMENDATIONS
-Preop evaluation before planned ERCP
reasonably active routinely achieving more than 4 METs of activity.
Will obtain echocardiogram
Likely will need no additional workup after the echo before the planned procedure
-Choledocholithiasis:
Planned ERCP later today
Further management issues per GI
-Resting bradycardia
Telemetry monitoring pre and post procedure
-Diabetes:
Discussed need for tight control of DM
Recent swings are likely related to choledocholithiasis
-Mixed hyperlipidemia:
Continue statin of okay with GI
Original Note:
Consultation
Consultation Request
Date/Time Consultation Requested: 02/27/2025 at 0825
Date/Time Consultation Performed: 02/27/2025 at 1200
Requesting Provider: Dr. Severino
Performing Provider: Dr. Cheema
Reason for Consultation: Sinus bradycardia, near syncope
Medical History
-
History of Present Illness:
Patient came to the ER yesterday from outpatient MRI after an abnormal MRI result, cardiology is now consulted for sinus bradycardia. Patient saw his PCP for nausea, dizziness and fevers that had been happening on and off for a couple of months
back on 02/06/2025 and at that time he was ordered an ultrasound of the abdomen that revealed cholelithiasis and enlarged bile duct. Patient then saw GI on 02/20/2025 and was recommended MRI. Patient then saw general surgery for symptomatic
cholelithiasis and was recommended MRCP and then possibly ERCP and eventual lap dennise. Patient had MRI on 02/25/2025 that showed obstructing choledocholithiasis in the common bile duct with moderate intrahepatic and proximal extrahepatic biliary
dilatation and patient was recommended to go to the ER for more expedited workup. Patient has been seen by GI and is recommended ERCP today. Cardiology has been consulted for sinus bradycardia. Patient denies any symptoms, the is sitting
bedside and says the patient has had several episodes of lightheadedness and near syncope, these are almost described as orthostatic with symptoms happening during change in position or changing from a stooped position to a standing position and
then feeling lightheaded. No deepak syncope. No known history of sinus bradycardia and no strong family history of conduction system disease. Patient was seen by cardiology more than 10 years ago for stress echo that was unremarkable. Then in
2015 patient had possible amyloid on colon biopsy prompting bone marrow biopsy that did not demonstrate amyloid. Otherwise patient deals with bipolar disorder and is chronically on Lyrica, naltrexone, Lamictal and Lexapro. Patient does not usually
take any AV kiley blockers. Patient also with DANIELLA on admission and he had actually seen nephrology as a new patient on 02/19/2025 and they felt the DANIELLA was prerenal related to fevers, inflammation with active cholelithiasis, weight loss and low
blood pressure and at that time his losartan was stopped.
PMH:
DM2
Hyperlipidemia
Bipolar disorder
Past Medical History
Past Medical History: Other (In HPI)
Past Surgical History: Other (Previous gastric biopsy and bone marrow biopsy to exclude amyloid 2016)
Social History
Tobacco: Other (chews tobacco)
Alcohol: Occasional
Drug: None
Personal:
Living: With Family
Employment: Employed
Family History
Family History: CAD and Diabetes
Allergies / Home Medications
Allergy/AdvReac Type Severity Reaction Status Date / Time
No Known Allergies Allergy Verified 02/26/25 18:46
�Medication �Instructions �Recorded �Confirmed �Type
escitalopram oxalate 10 mg tablet 10 mg PO DAILY 02/23/25 02/27/25 History
lamotrigine 150 mg tablet 150 mg PO DAILY 02/23/25 02/27/25 History
naltrexone 50 mg tablet 50 mg PO DAILY 02/23/25 02/27/25 History
pregabalin 75 mg capsule 75 mg PO TID 02/23/25 02/27/25 History
simvastatin 20 mg tablet 20 mg PO QPM 02/23/25 02/27/25 History
insulin aspart U-100 100 unit/mL 3 unit SC TID 02/26/25 02/27/25 History
(3 mL) subcutaneous pen (Novolog
FlexPen U-100 Insulin aspart)
insulin glargine 100 unit/mL 8 unit SC DAILY 02/26/25 02/27/25 History
subcutaneous solution (Lantus
U-100 Insulin)
Review of Systems
-
History Source: Patient
All other systems: Negative unless noted
Physical Exam
Vital Signs
Temp Pulse Resp BP Pulse Ox
97.9 F 48 24 129/57 99
02/27/25 11:00 02/27/25 12:00 02/27/25 12:00 02/27/25 11:19 02/27/25 11:00
GEN: NAD. AAOx3
HEENT: EOMI, MMM
LUNGS: RA. CTA B/L, no wheeze
CV: Sinus bradycardia on tele. Reg, S1/S2, no murmur
ABD: soft, BS+, NT, ND
EXT: No clubbing, cyanosis, lesions or edema B/L
NEURO: Gross non-focal
SKIN: Warm, dry and pink. No rash
Lab Results
02/27/25 06:04
02/27/25 04:34
Impression / Plan
-
PCP: Dr. Blackwell
Card: Dr. Doe
GI: Dr. Larsen
Nephrology: Dr. Molina
Impression:
Admitted with choledocholithiasis 02/26/2025
DANIELLA
Hyperkalemia
Hyponatremia
Sinus bradycardia
DM2
Hyperlipidemia
Bipolar disorder
Echo 02/27/2025: Study pending
Plan:
-Patient came to the ER yesterday from outpatient MRI after an abnormal MRI result, cardiology is now consulted for sinus bradycardia. Patient saw his PCP for nausea, dizziness and fevers that had been happening on and off for a couple of months
back on 02/06/2025 and at that time he was ordered an ultrasound of the abdomen that revealed cholelithiasis and enlarged bile duct. Patient then saw GI on 02/20/2025 and was recommended MRI. Patient then saw general surgery for symptomatic
cholelithiasis and was recommended MRCP and then possibly ERCP and eventual lap dennise. Patient had MRI on 02/25/2025 that showed obstructing choledocholithiasis in the common bile duct with moderate intrahepatic and proximal extrahepatic biliary
dilatation and patient was recommended to go to the ER for more expedited workup. Patient has been seen by GI and is recommended ERCP today. Cardiology has been consulted for sinus bradycardia. Patient denies any symptoms, the is sitting
bedside and says the patient has had several episodes of lightheadedness and near syncope, these are almost described as orthostatic with symptoms happening during change in position or changing from a stooped position to a standing position and
then feeling lightheaded. No deepak syncope. No known history of sinus bradycardia and no strong family history of conduction system disease. Patient was seen by cardiology more than 10 years ago for stress echo that was unremarkable. Then in
2015 patient had possible amyloid on colon biopsy prompting bone marrow biopsy that did not demonstrate amyloid. Otherwise patient deals with bipolar disorder and is chronically on Lyrica, naltrexone, Lamictal and Lexapro. Patient does not usually
take any AV kiley blockers. Patient also with DANIELLA on admission and he had actually seen nephrology as a new patient on 02/19/2025 and they felt the DANIELLA was prerenal related to fevers, inflammation with active cholelithiasis, weight loss and low
blood pressure and at that time his losartan was stopped.
-ECG reviewed by me sinus bradycardia with first-degree AV block and no evidence of acute ST changes
-Check echo urgently, order placed by me and study coordinated with echo department
-Patient with sinus bradycardia on ECG and telemetry. No higher grade heart block noted. Patient with intermittent dizziness, but this seems to be more positional and sounds orthostatic in nature.
-Pending echo patient can proceed with planned ERCP and would have atropine on standby if needed for sustained bradycardia or any higher grade heart block.
-No obvious association with Lexapro, Lamictal or Lyrica on bradycardia, but there is a possibility of naltrexone being linked with syncope however the mechanism is unknown. There are no adverse bradycardia reactions listed on up-to-date when
investigated by me.
-Potassium was 5.2 on admission, but has improved to 4.6 on labs reviewed by me 02/27/2025 and do not suspect that this is a major cause of his bradycardia.
-Cre as high as 2.0 on admission, but improved to 1.7. Patient also saw nephrology for DANIELLA as a new patient 02/19/2025 and they suspected it was multifactorial including inflammation from cholelithiasis, hypotension and losartan. His outpatient
dose of losartan has been stopped and BP currently improved
[2025-02-27 17:49] LABS: Glucose - Point of Care 242 mg/dl (70-99)
--- NOTE | 2025-02-27 17:51 | PTCARENOTE ---
Received patient from ED AAOx3. Pt oriented to room. Pt NPO for ERCP. Report given to GI Nurse and patient sent to GI. Made patient comfortable. Cont to assess patient status.
[2025-02-27 19:02] LABS: Glucose - Point of Care 363 mg/dl (70-99)
[2025-02-27] MEDS: NOVOLOG vial 12 UNITS SC (19:21)
[2025-02-27 20:30] LABS: Glucose - Point of Care 279 mg/dl (70-99)
[2025-02-27] MEDS: LIPITOR 10 MG PO (20:30)
[2025-02-27 23:19] LABS: Glucose - Point of Care 237 mg/dl (70-99)
[2025-02-28] VITALS (12 sets, daily range): BP systolic 93–152; BP diastolic 59–77
[2025-02-28] MEDS: ZOSYN 50 IV ×4 (03:58→21:11)
[2025-02-28 08:04] LABS: Hematocrit 29.5 % (39.0-52.0); Hemoglobin 9.8 g/dL (13.0-18.0); Mean Corp Hgb Conc. 33.2 g/dL (33.0-37.0); Mean Corpuscular Volume 86.3 fL (80.0-94.0); Platelet Count 193 10^3/uL (130-400); Red Cell Dist. Width 13.8 % (11.5-14.5)
[2025-02-28] MEDS: LYRICA 75 MG PO ×2 (08:14→21:11)
[2025-02-28] MEDS: REVIA 50 MG PO (08:14)
[2025-02-28] MEDS: LEXAPRO 10 MG PO (08:14)
[2025-02-28] MEDS: LAMICTAL 150 MG PO (08:15)
[2025-02-28 08:18] LABS: Glucose - Point of Care 175 mg/dl (70-99)
[2025-02-28] MEDS: NOVOLOG FLEXPEN-MODERATE RESISTANCE 1 UNITS SC ×2 (08:18→12:06)
[2025-02-28] MEDS: LANTUS 0.08 UNITS SC (08:20)
[2025-02-28 08:41] LABS: ALT (SGPT) 37 U/L (0-50); AST (SGOT) 23 U/L (17-59); Albumin 4.1 g/dl (3.5-5.0); Alkaline Phosphatase 293 U/L (38-126); Blood Urea Nitrogen 43 mg/dl (9-20); Calcium 9.5 mg/dl (8.4-10.2); Carbon Dioxide 22 mmol/L (22-30); Chloride 107 mmol/L (98-107); Estimated Creatinine Clearance 44 ml/min; Glucose 200 mg/dl (70-99); Potassium 4.6 mmol/L (3.5-5.1); Sodium 139 mmol/L (135-145); Total Protein 6.6 g/dl (6.3-8.2); eGFR 34.72
--- NOTE | 2025-02-28 08:57 | W.PN.GS2 ---
Today's Communication / Plan
-
-- Laparoscopic cholecystectomy with possible cholangiogram
Assessment / Plan
-
Patient is a 64 yo M p/w choledocholithiasis PPD#1 s/p ERCP
AVSS
Labs notable for normal WBC, stable Hb, elevated Cr, normal bilirubin, LFTs and elevated ALP
Cleared medically for the OR. No evidence of post ERCP pancreatitis.
Role of cholecystectomy in preventing future episodes of cholecystitis or choledocholithiasis has been previously reviewed. Plan for a laparoscopic cholecystectomy with possible cholangiogram. The procedure itself, as well as risks, benefits, and
alternatives was reviewed. Typical postprocedural recovery was reviewed. All questions answered. Consent signed.
-- Laparoscopic cholecystectomy with possible cholangiogram
-- NPO, IVF
-- Antibiotics: Zosyn
Subjective Data
-
Date of Service: February 28, 2025
Denies any abdominal pain. No nausea or emesis. No fevers.
Objective Data
-
Intake and Output
02/27/25 02/28/25 03/01/25
06:59 06:59 06:59
Intake Total 2410 / 2410
Balance 2410 / 2410
Intake:
Oral fluids 960 / 960
IV fluids (Total) 1350 / 1350
LR 250 / 250
Blood products 100 / 100
Other:
Number of approximated MODERATE 6
amounts of urine
Vital Signs
Temp Pulse Resp BP Pulse Ox
98 F 55 18 144/77 97
02/28/25 08:02 02/28/25 08:02 02/28/25 08:02 02/28/25 08:02 02/28/25 08:02
Lab Results
02/28/25 06:58
02/28/25 06:58
Calcium 9.5 mg/dl (8.4-10.2) 02/28/25 06:58
Total Bilirubin 1.2 mg/dl (0.2-1.3) 02/28/25 06:58
AST 23 U/L (17-59) 02/28/25 06:58
ALT 37 U/L (0-50) 02/28/25 06:58
Alkaline Phosphatase 293 U/L (38-126) H 02/28/25 06:58
Total Protein 6.6 g/dl (6.3-8.2) 02/28/25 06:58
Albumin 4.1 g/dl (3.5-5.0) 02/28/25 06:58
Physical Exam
-
Gen: NAD
Abd: soft, NT/ND, non-peritoneal
Patient has a morrow catheter: No
Patient has a central line: No
--- NOTE | 2025-02-28 09:01 | W.SUR.PREOP ---
Pre-Operative Surgical Note
-
I have examined this patient prior to the performance of the scheduled procedure.
The patient's condition is unchanged from the time of the current History and
Physical and the patient is able to undergo the scheduled procedure.
[2025-02-28] MEDS: LR IV (09:48)
[2025-02-28 11:47] LABS: Glucose - Point of Care 186 mg/dl (70-99)
--- NOTE | 2025-02-28 14:01 | PTCARENOTE ---
Received patient this am AAOx3. Pt NPO for OR. OOB ambulating in room independently with a steady gait. Pt offered no complaints. Report called to OR and patient sent at 13:30.
--- NOTE | 2025-02-28 14:15 | W.PN.UPDATE ---
Addendum entered and electronically signed by Jenny Sagastume DO 02/28/25 16:16:
Patient in OR. Will come back around tomorrow
Original Note:
Update Note
Progress Note Update
attempted to see pt== currently in OR-- reviewed with nursing no issues this am without fever. LFT's stable with alk phos 382- 293 otherwise normal LFT's-
--- NOTE | 2025-02-28 14:25 | W.PN.CARDCBS ---
Addendum entered and electronically signed by Tae Lazo MD 02/28/25 17:51:
I saw and examined the patient on morning rounds.
The Brick Baker's note was reviewed and I agree with the note.
Comment: Briefly, 64-year-old man presenting with sepsis found to have choledocholithiasis and underwent ERCP with plan for cholecystectomy today. Cardiology was consulted for bradycardia on telemetry.
No significant pauses or high-grade AV block seen on review of telemetry
Keep on telemetry
Would avoid AV kiley blockers
Echo here with normal LV function and no high-grade valve disease
Rest per Kaye Gustafson
Addendum entered and electronically signed by Kaye Gustafson PA-C 02/28/25 14:32:
.
Original Note:
Today's Communication / Plan
-
Follow on telemetry perioperatively
HR appropriately increases with activity, no high-grade heart block seen, no indication for PPM.
Impression / Plan
-
PCP: Dr. Blackwell
Card: Dr. Doe
GI: Dr. Larsen
Nephrology: Dr. Molina
Impression:
Admitted with choledocholithiasis 02/26/2025
DANIELLA
Hyperkalemia
Hyponatremia
Sinus bradycardia
DM2
Hyperlipidemia
Bipolar disorder
Echo 02/27/2025: EF 55 to 60%, mild concentric LVH, no WMA, normal RV size and function
Plan:
-Telemetry reviewed by me and HR with variability of 48 to 62 bpm 02/28/2025. No evidence of high-grade heart block
-Patient tolerated ERCP and may proceed with planned lap dennise
-Echo reviewed and report summarized above by me on 02/28/2025 and he has preserved EF with normal function and no significant valve disease
-Patient with intermittent dizziness prior to admission that sounded orthostatic in nature with symptoms happening during change in position including sitting to standing and stooping to standing. VS reviewed by me and BP has been normotensive
throughout admission
-Cre up to 2.1 on 02/28/2025, labs reviewed by me. Patient saw nephrology for DANIELLA as a new patient 02/19/2025 and they suspected it was multifactorial including inflammation from cholelithiasis, hypotension and losartan. His outpatient dose of
losartan was stopped at that time
HPI: Patient came to the ER yesterday from outpatient MRI after an abnormal MRI result, cardiology is now consulted for sinus bradycardia. Patient saw his PCP for nausea, dizziness and fevers that had been happening on and off for a couple of
months back on 02/06/2025 and at that time he was ordered an ultrasound of the abdomen that revealed cholelithiasis and enlarged bile duct. Patient then saw GI on 02/20/2025 and was recommended MRI. Patient then saw general surgery for symptomatic
cholelithiasis and was recommended MRCP and then possibly ERCP and eventual lap dennise. Patient had MRI on 02/25/2025 that showed obstructing choledocholithiasis in the common bile duct with moderate intrahepatic and proximal extrahepatic biliary
dilatation and patient was recommended to go to the ER for more expedited workup. Patient has been seen by GI and is recommended ERCP today. Cardiology has been consulted for sinus bradycardia. Patient denies any symptoms, the is sitting
bedside and says the patient has had several episodes of lightheadedness and near syncope, these are almost described as orthostatic with symptoms happening during change in position or changing from a stooped position to a standing position and
then feeling lightheaded. No deepak syncope. No known history of sinus bradycardia and no strong family history of conduction system disease. Patient was seen by cardiology more than 10 years ago for stress echo that was unremarkable. Then in
2015 patient had possible amyloid on colon biopsy prompting bone marrow biopsy that did not demonstrate amyloid. Otherwise patient deals with bipolar disorder and is chronically on Lyrica, naltrexone, Lamictal and Lexapro. Patient does not usually
take any AV kiley blockers. Patient also with DANIELLA on admission and he had actually seen nephrology as a new patient on 02/19/2025 and they felt the DANIELLA was prerenal related to fevers, inflammation with active cholelithiasis, weight loss and low
blood pressure and at that time his losartan was stopped.
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
Subjective
Date of Service: February 28, 2025
He feels well, never has any abdominal pain
Objective
Labs:
02/28/25 06:58
02/28/25 06:58
Labs
Hgb 9.8 g/dL (13.0-18.0) L 02/28/25 06:58
Hct 29.5 % (39.0-52.0) L 02/28/25 06:58
Plt Count 193 10^3/uL (130-400) D 02/28/25 06:58
PT 12.7 Sec (11.4-14.6) 02/27/25 09:37
INR 0.93 02/27/25 09:37
Sodium 139 mmol/L (135-145) 02/28/25 06:58
Potassium 4.6 mmol/L (3.5-5.1) 02/28/25 06:58
BUN 43 mg/dl (9-20) H 02/28/25 06:58
Creatinine 2.1 mg/dL (0.7-1.3) H 02/28/25 06:58
Glucose 200 mg/dl (70-99) H 02/28/25 06:58
Vital Signs and I&O:
Vital Signs
Temp Pulse Resp BP Pulse Ox
98.1 F 62 18 119/74 98
02/28/25 11:24 02/28/25 11:24 02/28/25 11:24 02/28/25 11:24 02/28/25 11:24
Vital Signs
Temp Pulse Resp BP Pulse Ox
98.1 F 62 18 119/74 98
02/28/25 11:24 02/28/25 11:24 02/28/25 11:24 02/28/25 11:24 02/28/25 11:24
Intake & Output
02/26/25 02/27/25 02/28/25 03/01/25
06:59 06:59 06:59 06:59
Intake Total 2409
Balance 2409
Physical Exam
Physical Exam
GEN: NAD. AAOx3
LUNGS: RA. No wheeze
CV: SR on tele.
[2025-02-28] MEDS: LYRICA PO (16:00)
[2025-02-28] MEDS: NOVOLOG FLEXPEN-MODERATE RESISTANCE SC (16:30)
--- NOTE | 2025-02-28 16:30 | W.IMMPOSTOP ---
Surgical Immed Post Op Note
-
Primary Surgeon: Karie
Assisting Surgeon: DEEPIKA Hough
Pre-op Diagnosis: Choledocholithiasis
Post-op Diagnosis: Choledocholithiasis
Procedure Performed: Laparoscopic cholecystectomy
Anesthesia Type: General
Specimen / Cultures:
1. Gallbladder
Estimated Blood Loss: 51 cc
Complications: None
Operative Findings:
1. Distended and elongated GB, mild wall thickening, no acute inflammation
2. Critical view of safety
3. Artery taken with clips, duct with clips and 0 PDS Endoloop
4. Tear in liver capsule at falciform controlled with cautery and Surgicel (removed)
--- NOTE | 2025-02-28 16:41 | W.PN.HOSP.TC ---
Today's Communication/Plan
-
Seen in PACU
Recovery from anesthesia
Stable respiratory status
Stable hemodynamics with heart rate in 60s
Assessment / Plan
Assessment / Plan
Impression:
64 years old male with type 2 diabetes with intermittent fever as outpatient prompted to workup revealed abnormal LFTs and later with imaging choledocholithiasis
Choledocholithiasis
Acute kidney injury
Hyperkalemia
Normal anion gap metabolic acidosis
Hyponatremia
Sinus bradycardia
Conditions prior to admission
Type 2 diabetes
Dyslipidemia
Bipolar disorder.
Plan
Choledocholithiasis
Asymptomatic on presentation, although with intermittent fevers outpatient.
Noted with normal bilirubin and very mild elevation of alkaline phosphatase and ALT
MRI
1. OBSTRUCTING CHOLEDOCHOLITHIASIS in the distal common bile duct.
2. Moderate intrahepatic and proximal extrahepatic biliary dilatation.
3. Moderate hepatosplenomegaly.
4. Mild lucinda hepatis and portacaval lymphadenopathy.
5. Small pancreatic cysts (less than 5 mm in size).
6. Small splenic cysts.
Status post ERCP on 02/27 with common bile stone retraction and sphincterectomy
Status post laparoscopic cholecystectomy on 02/28
Continue antibiotics/Zosyn perioperatively
Hold simvastatin acutely
Acute kidney injury
Noted mild hyperkalemia and normal anion gap metabolic acidosis.
Bladder scan for retention
Mild hyponatremia secondary to hyperglycemia
UA bland
Urine sodium 48
Follow creatinine with IV fluids
Sinus bradycardia improving with activity
No prior history of cardiac disease/arrhythmia
TSH within normal limits
Echocardiogram with preserved biventricular function and no significant valvular abnormalities
Correct electrolytes and monitor for worsening of hyperkalemia
Cardiology evaluation appreciated
Type 2 diabetes baseline
Patient reports hemoglobin A1c 6.9 recently
Given acute GI issues and abnormal LFTs was taken off Mounjaro and metformin with initiation of insulin.
Update hemoglobin A1c.
N.p.o. pending endoscopy
Given persistent hyperglycemia, resume Lantus 8 units at bedtime
Basal bolus protocol with serial Accu-Cheks
Neuropathy
Continue pregabalin and naltrexone with caution monitor renal function closely
Bipolar disorder
Continue lamotrigine, escitalopram
Anticipated Discharge: 24 - 48 hours
Subjective/Interval History
-
Date of Service: February 28, 2025
Objective Data
-
Labs:
Laboratory Results
02/28/25
06:58
WBC 5.7
Hgb 9.8 L
Hct 29.5 L
Plt Count 193 D
Sodium 139
Potassium 4.6
Chloride 107
Carbon Dioxide 22
BUN 43 H
Creatinine 2.1 H
Glucose 200 H
Calcium 9.5
Total Bilirubin 1.2
AST 23
ALT 37
Alkaline Phosphatase 293 H
Vital Signs:
Vital Signs
Temp Pulse Resp BP Pulse Ox
98.1 F 62 18 119/74 98
02/28/25 11:24 02/28/25 11:24 02/28/25 11:24 02/28/25 11:24 02/28/25 11:24
I&O
02/27/25 02/28/25 03/01/25
06:59 06:59 06:59
Intake Total 2410 / 2410 50 / 50
Balance 2410 / 2410 50 / 50
Physical Exam
-
General: Well Developed and No Apparent Distress
HEENT: Normocephalic, Atraumatic and Moist Mucous Membranes
Respiratory: Clear to Auscultation
Cardiac: Regular Rhythm and S1/S2; Negative Murmur, Rub or Gallop
GI: Soft, Nontender, Nondistended and Normal Bowel Sounds; Negative Organomegaly
Rectal: Deferred by Provider
Musculoskeletal: No Clubbing, No Cyanosis and No Edema
Skin: Negative Rash
Neuro: Nonfocal/Grossly Intact
[2025-02-28] MEDS: ZOFRAN 4 MG IV (17:05)
[2025-02-28 17:14] LABS: Glucose - Point of Care 282 mg/dl (70-99)
[2025-02-28] MEDS: DILAUDID 0.25 MG IV ×2 (17:21→17:37)
--- NOTE | 2025-02-28 18:34 | PTCARENOTE ---
Received patient from PACU AAOX3. Sleeping on Arrival to floor. Made patient comfortable. Cont to assess patient status.
[2025-02-28] MEDS: MYLICON 80 MG PO (21:11)
[2025-02-28 21:26] LABS: Glucose - Point of Care 403 mg/dl (70-99)
[2025-02-28 22:04] LABS: Glucose 396 mg/dl (70-99)
[2025-02-28] MEDS: NOVOLOG FLEXPEN 7 UNITS SC (22:22)
[2025-02-28] MEDS: ROXICODONE 5 MG PO (22:51)
[2025-03-01 00:37] LABS: Glucose - Point of Care 388 mg/dl (70-99)
[2025-03-01] MEDS: NOVOLOG FLEXPEN 8 UNITS SC (00:48)
[2025-03-01] MEDS: ZOSYN 50 IV ×2 (03:00→09:31)
[2025-03-01 03:06] LABS: Glucose - Point of Care 297 mg/dl (70-99)
[2025-03-01 03:23] VITALS: BP 138/69
--- NOTE | 2025-03-01 07:34 | W.PN.GS2 ---
Today's Communication / Plan
-
-- Carb control diet
-- Pain control: Tylenol, Oxycodone, avoid NSAIDS with Cr
-- DC instructions updated
-- F/u in the office in 2-4 weeks
Assessment / Plan
-
Patient is a 64 yo M p/w choledocholithiasis
PPD#2 s/p ERCP
POD#1 s/p laparoscopic cholecysectomy
AVSS
Labs pending
No postoperative concerns at this point in time. Pain control with Tylenol and oxycodone, avoid NSAIDs given creatinine issues. Advance diet.
-- Carb control diet
-- Pain control: Tylenol, Oxycodone, avoid NSAIDS with Cr
-- Antibiotics: Zosyn, none further needed from surgical perspective
-- DC instructions updated
-- F/u in the office in 2-4 weeks
Subjective Data
-
Date of Service: March 01, 2025
Reports abdominal soreness. No nausea or vomiting. No dizziness or lightheadedness. No fevers.
Objective Data
-
Intake and Output
02/28/25 03/01/25 03/02/25
06:59 06:59 06:59
Intake Total 2410 / 2410 970 / 970
Output Total 1000 / 1000
Balance 2410 / 2410 -30 / -30
Intake:
Oral fluids 960 / 960 720 / 720
IV fluids (Total) 1350 / 1350 100 / 100
LR 250 / 250
Normosol 100 / 100
IV piggybacks 150 / 150
Blood products 100 / 100
Output:
Urine, Voided 1000 / 1000
Other:
Number of approximated MODERATE 6 2
amounts of urine
Vital Signs
Temp Pulse Resp BP Pulse Ox
98.4 F 53 19 138/69 97
03/01/25 03:23 03/01/25 03:23 03/01/25 03:23 03/01/25 03:23 03/01/25 03:23
Calcium 9.5 mg/dl (8.4-10.2) 02/28/25 06:58
Total Bilirubin 1.2 mg/dl (0.2-1.3) 02/28/25 06:58
AST 23 U/L (17-59) 02/28/25 06:58
ALT 37 U/L (0-50) 02/28/25 06:58
Alkaline Phosphatase 293 U/L (38-126) H 02/28/25 06:58
Total Protein 6.6 g/dl (6.3-8.2) 02/28/25 06:58
Albumin 4.1 g/dl (3.5-5.0) 02/28/25 06:58
Physical Exam
-
Gen: NAD
Abd: soft, mild/moderate tenderness primarily at epigastric incision, ND, non-peritoneal, incisions c/d/i - no erythema, ecchymosis or drainage
Patient has a morrow catheter: No
Patient has a central line: No
[2025-03-01] MEDS: LANTUS 0.08 UNITS SC (07:39)
[2025-03-01] MEDS: REVIA 50 MG PO (07:39)
[2025-03-01] MEDS: LAMICTAL 150 MG PO (07:39)
[2025-03-01] MEDS: NOVOLOG FLEXPEN-MODERATE RESISTANCE 3 UNITS SC (07:39)
[2025-03-01 07:40] VITALS: BP 143/63
[2025-03-01 07:40] LABS: Glucose - Point of Care 206 mg/dl (70-99)
[2025-03-01] MEDS: LEXAPRO 10 MG PO (07:40)
[2025-03-01] MEDS: LYRICA 75 MG PO (07:40)
[2025-03-01 08:40] LABS: Hematocrit 32.1 % (39.0-52.0); Hemoglobin 10.4 g/dL (13.0-18.0); Mean Corp Hgb Conc. 32.4 g/dL (33.0-37.0); Mean Corpuscular Volume 87.7 fL (80.0-94.0); Platelet Count 224 10^3/uL (130-400); Red Cell Dist. Width 13.8 % (11.5-14.5)
[2025-03-01 09:14] LABS: ALT (SGPT) 64 U/L (0-50); AST (SGOT) 58 U/L (17-59); Albumin 4.4 g/dl (3.5-5.0); Alkaline Phosphatase 265 U/L (38-126); Blood Urea Nitrogen 39 mg/dl (9-20); Calcium 10.1 mg/dl (8.4-10.2); Carbon Dioxide 26 mmol/L (22-30); Chloride 104 mmol/L (98-107); Estimated Creatinine Clearance 42 ml/min; Glucose 221 mg/dl (70-99); Potassium 4.5 mmol/L (3.5-5.1); Sodium 140 mmol/L (135-145); Total Protein 7.2 g/dl (6.3-8.2); eGFR 32.83
[2025-03-01] MEDS: ROXICODONE 5 MG PO (09:29)
--- NOTE | 2025-03-01 09:42 | W.PN.CARDCBS ---
Addendum entered and electronically signed by Angel Waldron DO 03/01/25 11:38:
I saw and examined the patient.
The Secure Software Assessor's note was reviewed and I agree with the note.
Comment:
Plan:
HR remains stable.
No AV kiley blockers
Stable cv status
Cont post op care
Will arrange outpt cardiac follow up.
Please recall if needed.
Original Note:
Today's Communication / Plan
-
HR stable on tele.
Not on any AV kiley blockers.
Follow up to be arranged.
Impression / Plan
-
PCP: Dr. Blackwell
Program Project Analyst: Dr. Doe
GI: Dr. Larsen
Nephrology: Dr. Molina
Impression:
Admitted with choledocholithiasis 02/26/2025
DANIELLA
Hyperkalemia
Hyponatremia
Sinus bradycardia
DM2
Hyperlipidemia
Bipolar disorder
Echo 02/27/2025: EF 55 to 60%, mild concentric LVH, no WMA, normal RV size and function
Plan:
-Presented with choledocholithiasis. Now s/p lap cholecystectomy 02/28. Still with mild post-op pain. Continue abx per primary service/surgery.
-Consulted due to sinus bradycardia. HR is stable on review of telemetry. No evidence of high-grade heart block. Not on any AV kiley blockers.
-Echo 02/2025 with preserved EF as noted above.
-BP remains stable overall.
-Creat 2.2 on 03/01. Seen by nephrology as new patient 02/19/2025 and DANIELLA was felt to be multifactorial related to cholelithiasis, hypertension, and losartan. Losartan remains on hold
-Will arrange cardiac follow-up.
HPI: Patient came to the ER yesterday from outpatient MRI after an abnormal MRI result, cardiology is now consulted for sinus bradycardia. Patient saw his PCP for nausea, dizziness and fevers that had been happening on and off for a couple of
months back on 02/06/2025 and at that time he was ordered an ultrasound of the abdomen that revealed cholelithiasis and enlarged bile duct. Patient then saw GI on 02/20/2025 and was recommended MRI. Patient then saw general surgery for symptomatic
cholelithiasis and was recommended MRCP and then possibly ERCP and eventual lap dennise. Patient had MRI on 02/25/2025 that showed obstructing choledocholithiasis in the common bile duct with moderate intrahepatic and proximal extrahepatic biliary
dilatation and patient was recommended to go to the ER for more expedited workup. Patient has been seen by GI and is recommended ERCP today. Cardiology has been consulted for sinus bradycardia. Patient denies any symptoms, the is sitting
bedside and says the patient has had several episodes of lightheadedness and near syncope, these are almost described as orthostatic with symptoms happening during change in position or changing from a stooped position to a standing position and
then feeling lightheaded. No deepak syncope. No known history of sinus bradycardia and no strong family history of conduction system disease. Patient was seen by cardiology more than 10 years ago for stress echo that was unremarkable. Then in
2015 patient had possible amyloid on colon biopsy prompting bone marrow biopsy that did not demonstrate amyloid. Otherwise patient deals with bipolar disorder and is chronically on Lyrica, naltrexone, Lamictal and Lexapro. Patient does not usually
take any AV kiley blockers. Patient also with DANIELLA on admission and he had actually seen nephrology as a new patient on 02/19/2025 and they felt the DANIELLA was prerenal related to fevers, inflammation with active cholelithiasis, weight loss and low
blood pressure and at that time his losartan was stopped.
Progress Note - Program Project Analyst
Subjective
Date of Service: March 01, 2025
No cardiac complaints.
Objective
Labs:
03/01/25 08:03
03/01/25 08:03
Labs
Hgb 10.4 g/dL (13.0-18.0) L 03/01/25 08:03
Hct 32.1 % (39.0-52.0) L 03/01/25 08:03
Plt Count 224 10^3/uL (130-400) 03/01/25 08:03
PT 12.7 Sec (11.4-14.6) 02/27/25 09:37
INR 0.93 02/27/25 09:37
Sodium 140 mmol/L (135-145) 03/01/25 08:03
Potassium 4.5 mmol/L (3.5-5.1) 03/01/25 08:03
BUN 39 mg/dl (9-20) H 03/01/25 08:03
Creatinine 2.2 mg/dL (0.7-1.3) H 03/01/25 08:03
Glucose 221 mg/dl (70-99) H 03/01/25 08:03
Vital Signs and I&O:
Vital Signs
Temp Pulse Resp BP Pulse Ox
97.5 F 54 16 143/63 96
03/01/25 07:40 03/01/25 07:40 03/01/25 07:40 03/01/25 07:40 03/01/25 07:40
Vital Signs
Temp Pulse Resp BP Pulse Ox
97.5 F 54 16 143/63 96
03/01/25 07:40 03/01/25 07:40 03/01/25 07:40 03/01/25 07:40 03/01/25 07:40
Intake & Output
02/27/25 02/28/25 03/01/25 03/02/25
06:59 06:59 06:59 06:59
Intake Total 2409 / 2409 970 / 970
Output Total 1000 / 1000
Balance 2409 / 2409 -30 / -30
Physical Exam
Physical Exam
GEN: No distress, awake, alert, oriented x3
HEENT: supple, anicteric, mmm
LUNGS: CTA b/l, no wheezes/rales
CV: Reg, S1/S2, no murmur
EXT: No clubbing, cyanosis, or edema
NEURO: Gross non-focal
SKIN: [place], dry, no rash
--- NOTE | 2025-03-01 11:53 | W.DS.TRANS ---
Addendum entered and electronically signed by Kel Severino MD 03/01/25 15:31:
Naltrexone had been discontinued.
Patient informed to avoid taking oxycodone along with naltrexone. Latest was prescribed for obsessive-compulsive disorder
Original Note:
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
-
Discharge Instructions:
Discharge Diagnosis/Procedures Choledocholithiasis s/p ERCP and laparoscopic
cholecystectomy
Diet Regular,Low Fat
Additional Diets If issues with bloating or diarrhea follow a low
-fat diet
Activity No strenuous activity
Additional Activity No heavy lifting (>20 lbs) or strenuous
activities for 2 to 3 weeks postoperatively
Driving Restrictions No driving if too sore or taking narcotics
Bathing Restrictions OK to Shower
Wound Care Keep incisions clean and dry. Glue will flake
off in 2 to 3 weeks. Stitches will dissolve.
Use ice to the abdomen to reduce any bruising or
swelling.
Instructions:
Stand-Alone Forms:
Changes to Home Medications: No
Discharge Medications:
DC Medications w/original date entered in [employer]
escitalopram oxalate 10 mg tablet 10 mg PO DAILY 02/23/25
lamotrigine 150 mg tablet 150 mg PO DAILY 02/23/25
naltrexone 50 mg tablet 50 mg PO DAILY 02/23/25
pregabalin 75 mg capsule 75 mg PO TID 02/23/25
simvastatin 20 mg tablet 20 mg PO QPM 02/23/25
insulin aspart U-100 100 unit/mL (3 mL) subcutaneous pen (Novolog FlexPen U-100 Insulin aspart) 3 unit SC TID 02/26/25
insulin glargine 100 unit/mL subcutaneous solution (Lantus U-100 Insulin) 8 unit SC DAILY 02/26/25
oxycodone 5 mg tablet 5 mg PO Q4HPRN PRN breakthrough/severe pain #10 tabs 03/01/25
Home Medication Changes
Pending Results: No
[2025-03-01 11:55] LABS: Glucose - Point of Care 335 mg/dl (70-99)
[2025-03-01] MEDS: NOVOLOG FLEXPEN-MODERATE RESISTANCE 7 UNITS SC (12:18)
[2025-03-01 12:45] VITALS: BP 151/71
--- NOTE | 2025-03-01 13:02 | CM ---
Patient seen bedside.
Patient denies home care needs.
Plan: home no needs.
== END 2025-03-01 14:13 | disposition home or self-care (01) | DRG 418 ==
LOC: 4 EAST ACU 23:16
PROVIDERS: Emergency Medicine; Internal Medicine Gastroenterology; Nurse Practitioner Adult Health; Nurse Practitioner Family; ADMITTING PHYSICIAN Internal Medicine; ATTENDING PHYSICIAN Internal Medicine; CONSULT PHYSICIAN Internal Medicine; CONSULT PHYSICIAN Surgery; EMERGENCY PHYSICIAN Emergency Medicine; FAMILY PHYSICIAN Family Medicine; OTHER PHYSICIAN Internal Medicine Interventional Cardiology
PROC: 0F7D8DZ Dilation of Pancreatic Duct with Intraluminal Device, Via Natural or Artificial Opening Endoscopic (ICD-10-PCS; 2025-02-27)
PROC: 0FC98ZZ Extirpation of Matter from Common Bile Duct, Via Natural or Artificial Opening Endoscopic (ICD-10-PCS; 2025-02-27)
PROC: BF101ZZ Fluoroscopy of Bile Ducts using Low Osmolar Contrast (ICD-10-PCS; 2025-02-27)
PROC: 0FT44ZZ Resection of Gallbladder, Percutaneous Endoscopic Approach (ICD-10-PCS; 2025-02-28)
DX: K80.42 Calculus of bile duct with acute cholecystitis without obstruction (principal); E87.1 Hypo-osmolality and hyponatremia; N17.9 Acute kidney failure, unspecified; K66.0 Peritoneal adhesions (postprocedural) (postinfection); F31.9 Bipolar disorder, unspecified; E87.5 Hyperkalemia; E11.65 Type 2 diabetes mellitus with hyperglycemia; E11.40 Type 2 diabetes mellitus with diabetic neuropathy, unspecified; I10 Essential (primary) hypertension; Z72.0 Tobacco use; Z80.0 Family history of malignant neoplasm of digestive organs; Z82.49 Family history of ischemic heart disease and other diseases of the circulatory system; Z79.4 Long term (current) use of insulin; E78.2 Mixed hyperlipidemia; E86.9 Volume depletion, unspecified; F41.9 Anxiety disorder, unspecified; Z79.899 Other long term (current) drug therapy; Z86.16 Personal history of COVID-19
CPT/HCPCS: 74330; 76000; 80048; 80053; 81003; 81015; 82947; 82962; 83036; 83690; 84300; 84443; 85014; 85018; 85025; 85027; 85610; 86850; 86900; 86901; 87040; 88304; 93005; 93306; C1726; C1769; C2617